=== PATIENT | female | born 1945 | race Caucasian/White ===

== ENCOUNTER 2023-06-05 10:28 | Inpatient (IN) | payer MEDICARE, OTHER ==
[~2023-06-05] VITALS: Ht 167.6 cm; Wt 107.5 kg
[2023-06-05 10:55] LABS: ABG OXYGEN SATURATION 98.5 % (92.0-98.5); ABG PCO2 62.3 mmHg (35.0-45.0); ABG PH 7.246 (7.350-7.450); ABG PO2 146.1 mmHg (75.0-100.0); ABG TOTAL HEMOGLOBIN 13.1 G/dL (12.0-16.0); COHb 0.2 % (0.5-1.5); MetHb 0.4 % (0.0-1.5); O2Hb 97.9 % (94.0-97.0); SITE, ABG Right Radial; VENT MODE, BG 15LPM NRB
[2023-06-05 10:59] LABS: BASOPHILS # (AUTO) 0.1 K/uL (0.0-0.2); BASOPHILS % (AUTO) 0.8 % (0.0-2.0); EOSINOPHILS # (AUTO) 0.2 K/uL (0.0-0.7); EOSINOPHILS % (AUTO) 1.2 % (0.0-6.0); HEMATOCRIT 37 % (33-45); HEMOGLOBIN 11.9 g/dL (11.5-14.8); LYMPHOCYTES # (AUTO) 2.4 K/uL (0.8-4.8); MEAN CORPUSCULAR HEMOGLOBIN 26 PG (26.0-33.0); MEAN CORPUSCULAR HGB CONC 32 g/dl (31.0-36.0); MEAN CORPUSCULAR VOLUME 80 fL (82-100); MONOCYTES # (AUTO) 0.8 K/uL (0.1-1.30); MONOCYTES % (AUTO) 5.5 % (2.0-12.0); NEUTROPHILS # (AUTO) 10.8 K/uL (1.8-8.9); NEUTROPHILS % (AUTO) 75.5 % (43.0-81.0); PLATELET COUNT (AUTO) 389 K/uL (150-450); RED BLOOD CELL COUNT(AUTO) 4.59 MIL/uL (4.0-5.2); WHITE BLOOD COUNT (AUTO) 14.4 K/uL (4.3-11.0)
[2023-06-05 11:00] LABS: CARBON DIOXIDE 30 mmol/L (21-32); CHLORIDE 92 mmol/L (98-107); CREATININE 0.7 mg/dL (0.6-1.3); GLUCOSE 246 mg/dL (74-106); POTASSIUM 4.2 mmol/L (3.5-5.1); SODIUM SERUM 132 mmol/L (136-145); UREA NITROGEN, BLOOD 12 mg/dL (7-18)
[2023-06-05] MEDS: methylPREDNISolone SOD SUCC 125 MG/2ML VIAL IV ONE (11:00)
[2023-06-05 11:10] LABS: LACTIC ACID 1.3 mmol/L (0.4-2.0)
[2023-06-05 11:16] LABS: ALANINE AMINOTRANSFERASE 18 U/L (12-78); ALBUMIN 3.7 g/dL (3.4-5.0); ALKALINE PHOSPHATASE 117 U/L (46-116); ASPARTATE AMINOTRANSFERASE 16 U/L (15-37); BILIRUBIN,DIRECT 0.2 mg/dL (0.0-0.2); NT-PRO BNP 4553 pg/mL (0-125); TOTAL PROTEIN, SERUM 7.5 g/dL (6.4-8.2)
[2023-06-05] MEDS ORDERED: ALBUTEROL FS 2.5 MG/3 ML VIAL.NEB ONE (11:26)
[2023-06-05] MEDS ORDERED: ALBUTEROL FS 2.5 MG/0.5 ML VIAL.NEB ONE ×2 (11:26→12:51)
[2023-06-05] MEDS ORDERED: CEFTRIAXONE 1GM BAG (ER ONLY) 50 ML IV ONE (11:27)
[2023-06-05] MEDS: IPRATROPIUM NEB FS 0.5 MG/2.5 ML AMPUL.NEB NEB ONE (11:28)
[2023-06-05] MEDS: ALBUTEROL FS 2.5 MG/3 ML VIAL.NEB NEB ONE (11:28)
[2023-06-05] MEDS: CEFTRIAXONE 1 G in IV D5W 50 ML IV ONE (11:30)
[2023-06-05] MEDS ORDERED: FUROSEMIDE 40 MG/4 ML VIAL ONE (11:34)
[2023-06-05] MEDS: FUROSEMIDE 40 MG/4 ML VIAL IV ONE (11:38)
[2023-06-05] MEDS ORDERED: MAG HYDROX/AL HYDROX/SIMETH 30 ML UDC PO PRN (12:00)
[2023-06-05] MEDS ORDERED: ZOLPIDEM TARTRATE 5 MG TABLET PO PRN (12:00)
[2023-06-05] MEDS ORDERED: Z GUARD REMEDY 4 OZ OINT TP PRN (12:00)
[2023-06-05] MEDS: AZITHROMYCIN 500 MG in IV D5W 250 ML IV SCH (12:00)
[2023-06-05] MEDS ORDERED: MAGNESIUM HYDROXIDE 30 ML UDC PO PRN (12:00)
[2023-06-05] MEDS ORDERED: methylPREDNISolone SOD SUCC 125 MG/2ML VIAL ONE ×2 (12:16→17:22)
[2023-06-05 12:39] LABS: THYROID STIMULATING HORMONE 20.279 uIU/mL (0.358-3.74)
[2023-06-05] MEDS ORDERED: IPRATROPIUM NEB FS 0.5 MG/2.5 ML AMPUL.NEB ONE (12:51)
[2023-06-05] MEDS: methylPREDNISolone SOD SUCC 40 MG/ML VIAL IV SCH (13:00)
[2023-06-05] MEDS: IPRATROPIUM NEB FS 0.5 MG/2.5 ML AMPUL.NEB NEB SCH (13:32)
[2023-06-05] MEDS: ALBUTEROL FS 2.5 MG/0.5 ML VIAL.NEB NEB SCH (13:32)
[2023-06-05 15:08] LABS: ABG OXYGEN SATURATION 98.1 % (92.0-98.5); ABG PCO2 53.7 mmHg (35.0-45.0); ABG PH 7.383 (7.350-7.450); ABG TOTAL HEMOGLOBIN 12.7 G/dL (12.0-16.0); COHb 0.3 % (0.5-1.5); MetHb 0.1 % (0.0-1.5); O2Hb 97.7 % (94.0-97.0); SITE, ABG Right Radial; VENT MODE, BG BIPAP 12/5 40% 18RR
[2023-06-05] MEDS ORDERED: APIXABAN 5 MG TABLET ONE (17:22)
[2023-06-05] MEDS: APIXABAN 5 MG TABLET PO SCH (17:23)
[2023-06-05 19:32] VITALS: O2SAT 99
[2023-06-05 19:47] VITALS: O2SAT 99
[2023-06-05 20:00] VITALS: BP 142/58; TEMP 97.7; O2SAT 98
[2023-06-05] MEDS: FUROSEMIDE 40 MG/4 ML VIAL IV SCH (20:25)
[2023-06-06] VITALS (10 sets, daily range): BP systolic 120–134; BP diastolic 54–57; TEMP 97.8; O2SAT 96–100
[2023-06-06] MEDS: ACETAMINOPHEN 325 MG TABLET PO PRN (01:52)
[2023-06-06 07:07] LABS: HEMATOCRIT 34 % (33-45); HEMOGLOBIN 10.9 g/dL (11.5-14.8); LYMPHOCYTES # (AUTO) 0.6 K/uL (0.8-4.8); LYMPHOCYTES % (AUTO) 4.8 % (20.0-44.0); MEAN CORPUSCULAR HEMOGLOBIN 26 PG (26.0-33.0); MEAN CORPUSCULAR HGB CONC 32 g/dl (31.0-36.0); MEAN CORPUSCULAR VOLUME 81 fL (82-100); MONOCYTES # (AUTO) 0.1 K/uL (0.1-1.30); NEUTROPHILS # (AUTO) 12.2 K/uL (1.8-8.9); NEUTROPHILS % (AUTO) 94.2 % (43.0-81.0); PLATELET COUNT (AUTO) 321 K/uL (150-450); RED BLOOD CELL COUNT(AUTO) 4.16 MIL/uL (4.0-5.2); RED CELL DISTRIBUTION WIDTH 14.8 % (11.5-15.0); WHITE BLOOD COUNT (AUTO) 12.9 K/uL (4.3-11.0)
[2023-06-06 07:39] LABS: CALCIUM, SERUM 8.4 mg/dL (8.5-10.1); CREATININE 0.7 mg/dL (0.6-1.3); MAGNESIUM 1.8 mg/dL (1.8-2.4); PHOSPHORUS 4.2 mg/dL (2.5-4.9); POTASSIUM 4.4 mmol/L (3.5-5.1)
[2023-06-06] MEDS ORDERED: DILT-4 PO (08:20)
[2023-06-06] MEDS ORDERED: RAMI10CA69 PO (08:20)
[2023-06-06] MEDS ORDERED: EVOL140P3 SQ (08:20)
[2023-06-06] MEDS ORDERED: UBID100C13 PO (08:20)
[2023-06-06] MEDS ORDERED: LEVO112T5 PO (08:20)
[2023-06-06] MEDS ORDERED: EZET10TA16 PO (08:20)
[2023-06-06] MEDS ORDERED: PANT40TA49 PO (08:20)
[2023-06-06] MEDS ORDERED: [UNRECOGNIZED DRUG - OTHER] PO (08:20)
[2023-06-06] MEDS ORDERED: VIT1CAPS9 PO (08:20)
[2023-06-06] MEDS ORDERED: CARV25TA PO (08:20)
[2023-06-06] MEDS: ASPIRIN 81 MG TAB.CHEW PO SCH (08:20)
[2023-06-06] MEDS ORDERED: VIT D PO (08:20)
[2023-06-06] MEDS ORDERED: APIX5TAB PO (08:20)
[2023-06-06] MEDS: PANTOPRAZOLE 40 MG VIAL IV SCH (08:21)
[2023-06-06] MEDS ORDERED: methylPREDNISolone SOD SUCC 40 MG/ML VIAL IV SCH (09:30)
[2023-06-06 10:09] LABS: IRON, SERUM 23 ug/dl (50-175); TOTAL IRON BINDING CAPACITY 349 ug/dl (250-450)
[2023-06-06 10:23] LABS: FERRITIN 43 ng/mL (8-388)
[2023-06-06 10:36] LABS: ABG BASE EXCESS 7.6 mmol/L; ABG OXYGEN SATURATION 91.1 % (92.0-98.5); ABG PH 7.438 (7.350-7.450); ABG PO2 57.4 mmHg (75.0-100.0); ABG TOTAL HEMOGLOBIN 12.4 G/dL (12.0-16.0); AaDO2 32.5 mmHg; COHb 0.3 % (0.5-1.5); MetHb 0.1 % (0.0-1.5); O2Hb 90.7 % (94.0-97.0); SITE, ABG Right Radial; VENT MODE, BG room air
[2023-06-06] MEDS: LEVOTHYROXINE SODIUM 112 MCG TABLET PO SCH (11:11)
[2023-06-06] MEDS: POTASSIUM CHLORIDE 20 MEQ TAB.PRT.SR PO SCH (11:11)
[2023-06-06] MEDS: GUAIFENESIN LA 600 MG TABLET.SA PO SCH (11:11)
[2023-06-06] MEDS: VALSARTAN 80 MG TABLET PO SCH (11:11)
[2023-06-06] MEDS: EZETIMIBE 10 MG TABLET PO SCH (11:11)
[2023-06-06] MEDS: FUROSEMIDE 40 MG/4 ML VIAL IV SCH (11:11)
[2023-06-06] MEDS: PANTOPRAZOLE 40 MG TABLET.DR PO SCH (11:11)
[2023-06-06] MEDS ORDERED: CEFTRIAXONE 1 G in IV D5W 50 ML IV SCH (12:00)
[2023-06-06] MEDS: MULTIVITAMINS,THERAGRAN 1 UDTAB TABLET PO SCH (12:56)
[2023-06-06] MEDS: ONDANSETRON HCL/PF 4 MG/2 ML VIAL IVP PRN (12:56)
[2023-06-06] MEDS: APIXABAN 5 MG TABLET PO SCH (13:00)
[2023-06-06] MEDS: ALBUTEROL FS 2.5 MG/0.5 ML VIAL.NEB NEB SCH (13:10)
[2023-06-06] MEDS: methylPREDNISolone SOD SUCC 40 MG/ML VIAL IV SCH (17:29)
[2023-06-06] MEDS: CARVEDILOL 12.5 MG TABLET PO SCH (17:30)
[2023-06-06] MEDS: DILTIAZEM HCL CD 240 MG PO SCH (18:50)
[2023-06-07] VITALS (14 sets, daily range): BP systolic 114–153; BP diastolic 46–69; TEMP 97.8–98.6; O2SAT 93–100
[2023-06-07 06:42] LABS: HEMATOCRIT 33 % (33-45); HEMOGLOBIN 10.8 g/dL (11.5-14.8); LYMPHOCYTES # (AUTO) 0.7 K/uL (0.8-4.8); LYMPHOCYTES % (AUTO) 3.5 % (20.0-44.0); MEAN CORPUSCULAR HEMOGLOBIN 26 PG (26.0-33.0); MEAN CORPUSCULAR HGB CONC 32 g/dl (31.0-36.0); MEAN CORPUSCULAR VOLUME 80 fL (82-100); MONOCYTES # (AUTO) 0.6 K/uL (0.1-1.30); MONOCYTES % (AUTO) 2.9 % (2.0-12.0); NEUTROPHILS % (AUTO) 93.6 % (43.0-81.0); PLATELET COUNT (AUTO) 346 K/uL (150-450); RED BLOOD CELL COUNT(AUTO) 4.15 MIL/uL (4.0-5.2); WHITE BLOOD COUNT (AUTO) 19.2 K/uL (4.3-11.0)
[2023-06-07] MEDS: LEVOTHYROXINE SODIUM 112 MCG TABLET PO SCH (06:48)
[2023-06-07 08:54] LABS: ALANINE AMINOTRANSFERASE 18 U/L (12-78); ALBUMIN 3.2 g/dL (3.4-5.0); ALKALINE PHOSPHATASE 99 U/L (46-116); ASPARTATE AMINOTRANSFERASE 17 U/L (15-37); BILIRUBIN,TOTAL 0.4 mg/dL (0.2-1.0); CALCIUM, SERUM 8.7 mg/dL (8.5-10.1); CARBON DIOXIDE 32 mmol/L (21-32); CHLORIDE 92 mmol/L (98-107); CREATININE 0.7 mg/dL (0.6-1.3); GLUCOSE 136 mg/dL (74-106); MAGNESIUM 1.9 mg/dL (1.8-2.4); PHOSPHORUS 3.5 mg/dL (2.5-4.9); POTASSIUM 4.9 mmol/L (3.5-5.1); SODIUM SERUM 133 mmol/L (136-145); TOTAL PROTEIN, SERUM 6.8 g/dL (6.4-8.2); UREA NITROGEN, BLOOD 24 mg/dL (7-18)
[2023-06-07] MEDS: FUROSEMIDE 40 MG/4 ML VIAL IV SCH (11:36)
[2023-06-07] MEDS: DILTIAZEM HCL CD 240 MG PO SCH (17:22)
[2023-06-08] VITALS (7 sets, daily range): BP systolic 131–132; BP diastolic 52–62; TEMP 97.7–98; O2SAT 92–100
[2023-06-08 07:01] LABS: HEMATOCRIT 34 % (33-45); LYMPHOCYTES # (AUTO) 0.6 K/uL (0.8-4.8); LYMPHOCYTES % (AUTO) 4.7 % (20.0-44.0); MEAN CORPUSCULAR HEMOGLOBIN 26 PG (26.0-33.0); MEAN CORPUSCULAR HGB CONC 33 g/dl (31.0-36.0); MEAN CORPUSCULAR VOLUME 80 fL (82-100); MONOCYTES # (AUTO) 0.4 K/uL (0.1-1.30); MONOCYTES % (AUTO) 2.7 % (2.0-12.0); NEUTROPHILS # (AUTO) 12.3 K/uL (1.8-8.9); NEUTROPHILS % (AUTO) 92.6 % (43.0-81.0); PLATELET COUNT (AUTO) 326 K/uL (150-450); RED BLOOD CELL COUNT(AUTO) 4.22 MIL/uL (4.0-5.2); RED CELL DISTRIBUTION WIDTH 15.4 % (11.5-15.0); WHITE BLOOD COUNT (AUTO) 13.2 K/uL (4.3-11.0)
[2023-06-08 07:07] LABS: ALBUMIN 3.1 g/dL (3.4-5.0); BILIRUBIN,TOTAL 0.5 mg/dL (0.2-1.0); CALCIUM, SERUM 8.3 mg/dL (8.5-10.1); CREATININE 0.7 mg/dL (0.6-1.3); PHOSPHORUS 3.6 mg/dL (2.5-4.9); POTASSIUM 3.9 mmol/L (3.5-5.1); TOTAL PROTEIN, SERUM 6.6 g/dL (6.4-8.2)
[2023-06-08] MEDS ORDERED: PRED20TA PO (11:34)
== END 2023-06-08 13:00 | disposition home or self-care (01) | DRG 280 ==
LOC: ER 10:28 → TRANSITION 16:48 → TELE1 16:55 → TELE-TD 17:49 → TELE1 06-06 10:22
PROVIDERS: ADMIT Nurse Practitioner Acute Care; ATTEND Nurse Practitioner Family
DX: I11.0 Hypertensive heart disease with heart failure (principal); I21.A1 Myocardial infarction type 2; I50.43 Acute on chronic combined systolic (congestive) and diastolic (congestive) heart failure; J96.21 Acute and chronic respiratory failure with hypoxia; J96.22 Acute and chronic respiratory failure with hypercapnia; E87.1 Hypo-osmolality and hyponatremia; E66.2 Morbid (severe) obesity with alveolar hypoventilation; J98.11 Atelectasis; J90 Pleural effusion, not elsewhere classified; Z20.822 Contact with and (suspected) exposure to COVID-19; Z95.810 Presence of automatic (implantable) cardiac defibrillator; Z86.74 Personal history of sudden cardiac arrest; I25.2 Old myocardial infarction; Z87.891 Personal history of nicotine dependence; I25.10 Atherosclerotic heart disease of native coronary artery without angina pectoris; Z95.5 Presence of coronary angioplasty implant and graft; I48.0 Paroxysmal atrial fibrillation; E89.0 Postprocedural hypothyroidism; Z68.30 Body mass index [BMI] 30.0-30.9, adult; E66.9 Obesity, unspecified; Z79.01 Long term (current) use of anticoagulants; R73.9 Hyperglycemia, unspecified; Z79.890 Hormone replacement therapy
CPT/HCPCS: 36415; 36600; 71045-TC; 80048-TC; 80053-TC; 80061-TC; 80076-TC; 82728-TC; 82803-TC; 83540-TC; 83605-TC; 83735-TC; 83880; 84100-TC; 84439-TC; 84443-TC; 84481; 84484-TC; 85025-TC; 85378-TC; 87040-TC; 93307-TC; 94762-TC; 94799-TC; 97112-TC; 97116-TC; 97530-TC; C9113; G0378; J0456; J0696; J1940; J2405; J2920; J2930; J7050; J7060